=== PATIENT | male | born 1945 | race Caucasian/White ===

== ENCOUNTER 2021-11-14 10:30 | Emergency (ER) | payer MEDICARE, SELFPAY ==
[2021-11-14] VITALS (15 sets, daily range): BP systolic 171–191; BP diastolic 81–105; PULSE 52–64; RESP 8–19; TEMP 36.4; O2SAT 97–99
--- NOTE | ~2021-11-14 | XR_ITS ---
EXAMINATION: XR chest 2V 11/14/2021 11:15 INDICATION: Weakness and dyspnea PROCEDURE: 2 view chest COMPARISON: No prior studies for comparison. FINDINGS: The lungs are clear. The cardiomediastinal silhouette is within normal limits. There are no pleural effusions. There is no pneumothorax suspected. IMPRESSION: 1: NO ACUTE CARDIOPULMONARY DISEASE. Reviewed, dictated and finalized at location A.
--- NOTE | 2021-11-14 10:34 | ECG_ITS ---
Measurements Intervals [place] Rate: 57 P: 73 CA: 190 QRS: 30 QRSD: 102 T: 74 QT: 407 QTc: 397 Interpretive Statements SINUS BRADYCARDIA NONSPECIFIC T-WAVE ABNORMALITY NO PREVIOUS ECG AVAILABLE FOR COMPARISON Electronically Signed On 11-14-2021 15:44:04 CDT by Leighton Simons M.D.
[2021-11-14 10:53] LABS: Basophils Percent Auto 0.8 % (0.2-1.2); Eosinophils Absolute Auto 0.2 K/mm3 (0-0.3); Eosinophils Percent Auto 3.4 % (0-4.4); Hematocrit 38.9 % (42.0-52.0); Hemoglobin 13.3 g/dL (14.0-18.0); Immature Granulocyte Absolute 0.01 K/mm3 (0.00-0.031); Immature Granulocyte Percent A 0.2 % (0-0.5); Lymphocytes Percent Auto 36.1 % (18.3-44.2); Mean Corpuscular HGB Conc 34.2 g/dl (32-36); Mean Corpuscular Hemoglobin 36.3 pg (26-34); Mean Corpuscular Volume 106.3 fl (80-100); Mean Platelet Volume 10.8 fl (7.4-10.4); Monocytes Absolute Auto 0.6 K/mm3 (0.1-0.6); Neutrophils Absolute Auto 2.6 K/mm3 (1.3-6.7); Neutrophils Percent Auto 48.5 % (45.5-73.1); Platelet Count Result 185 k/mm3 (150-375); Red Blood Count 3.66 M/mm3 (4.6-6.20); White Blood Count 5.3 K/mm3 (4.5-10.0)
[2021-11-14 11:03] LABS: Alanine Aminotransferase 32 U/L (4-50); Albumin Level 4.2 g/dL (3.5-5.1); Alkaline Phosphatase 58 U/L (38-126); Anion Gap 6 mmol/L (8-16); Aspartate Amino Transferase 26 U/L (17-59); Bilirubin,Total 0.4 mg/dL (0.2-1.3); Blood Urea Nitrogen 20 mg/dL (9-20); Calcium 8.8 mg/dL (8.4-10.2); Carbon Dioxide 24 mmol/L (22-30); Chloride 106 mmol/L (98-107); Estimated Glomerular Filt Rate > 60; Glucose 142 mg/dL (65-110); Potassium 4.3 mmol/L (3.4-5.0); Sodium 136 mmol/L (137-145)
[2021-11-14 11:15] LABS: Troponin I < 0.012 ng/mL (0.000-0.034)
[2021-11-14 11:20] LABS: Add Urine Microscopic? YES; Appearance Urine Clear (Clear); Bilirubin Urine Negative (Negative); Blood Urine Negative (Negative); Color Urine Yellow (Yellow); Glucose Urine UA Negative (Negative); Ketones Urine Negative (Negative); Leukocyte Esterase Ur Negative LEU/UL (Negative); Nitrate Urine Negative (Negative); Protein Urine 2+ mg/dL (Negative); RBC Urine 0-2 /hpf (0-2); Specific Grav Ur 1.014 (1.001-1.035); Urobilinogen Urine Negative mg/dL (<2.0); WBC Urine 0-3 /hpf
--- NOTE | 2021-11-14 12:30 | ED.GENADULT ---
HPI - General Adult General Chief complaint: Weakness Stated complaint: weakness Time Seen by Provider: 11/14/21 12:24 Source: patient and RN notes reviewed Mode of arrival: ambulatory Limitations: no limitations History of Present Illness HPI narrative: Patient 76 years old white male presented to the ED with shortness of breath on exertion for over 2 years, did not tell anybody about it. Also increased heart rate according to his watch, currently monitor showing sinus bradycardia at 55 bpm and patient is asymptomatic. Patient tells me that he been walking 2 miles every day without any symptoms. Patient denies any fever, chills, nausea, vomiting, headache, chest pain, shortness of breath Related Data Allergies Allergy/AdvReac Type Severity Reaction Status Date / Time No Known Allergies Allergy Verified 04/24/18 08:51 Review of Systems Review of Systems: CONSTITUTIONAL: Denies fever, chills, or sweats. EYES: Denies visual changes, redness, or discharge. ENT: Denies rhinorrhea, congestion, sore throat, or otalgia. CARDIOVASCULAR: Denies chest pain, palpitations, or edema. RESPIRATORY: Denies cough or dyspnea. GASTROINTESTINAL: Denies abdominal pain, nausea, vomiting, or diarrhea. GENITOURINARY: Denies dysuria or hematuria. SKIN: Denies rash or itching. MUSCULOSKELETAL: Denies back pain, joint pain, or myalgia. NEUROLOGIC: Denies headache, numbness, or weakness. PSYCHIATRIC: Denies anxiety or depression. Exam Narrative: General appearance: Well-developed, well-nourished Skin: Normal color Head: Normocephalic, nontraumatic Eyes: Clear conjunctiva ENT: Oropharynx normal, ears normal, nose normal Neck: Supple, nontender Chest and respiratory: Airway patent, no respiratory distress, no accessory muscle use Heart: Sinus bradycardia Abdomen: Soft, nontender, no organomegaly, quiet bowel sounds Vascular: Normal peripheral pulses, normal capillary refill. Musculoskeletal: Normal range of motion, nontender back Neurologic: Alert and oriented ?3, [employer] is normal as tested, no gross motor deficit Course Course Emergency Course: Patient believes that his watch telling him that his heart rate was in the 200 overnight, currently his heart rate 55 and asymptomatic. After lengthy explanation, my plan to discharge patient on Holter monitor follow-up with Dr. Martinez as outpatient. Also to contact his family physician for further evaluation. Patient is asymptomatic on arrival to the emergency room until the time of discharge. Vital Signs Vital signs: Vital Signs Temperature 36.4 C L 11/14/21 10:58 Pulse Rate 59 L 11/14/21 10:58 Respiratory Rate 18 11/14/21 10:58 Blood Pressure 171/81 H 11/14/21 10:58 Pulse Oximetry 99 11/14/21 10:58 Temperature 36.4 C L 11/14/21 10:58 Pulse Rate 55 L 11/14/21 13:15 Respiratory Rate 11 L 11/14/21 13:15 Blood Pressure 190/98 H 11/14/21 13:02 Pulse Oximetry 99 11/14/21 13:15 Medical Decision Making Differential Diagnosis Differential Diagnosis: Cardiac arrhythmia, electrolyte imbalance, coronary artery disease, anxiety-like symptoms Vital Signs Vital Signs: Vital Signs Temperature 36.4 C L 11/14/21 10:58 Pulse Rate 59 L 11/14/21 10:58 Respiratory Rate 18 11/14/21 10:58 Blood Pressure 171/81 H 11/14/21 10:58 Pulse Oximetry 99 11/14/21 10:58 Temperature 36.4 C L 11/14/21 10:58 Pulse Rate 55 L 11/14/21 13:15 Respiratory Rate 11 L 11/14/21 13:15 Blood Pressure 190/98 H 11/14/21 13:02 Pulse Oximetry 99 11/14/21 13:15 Lab Data Result diagrams: 11/14/21 10:46 11/14/21 10:46 Labs: Lab Results 11/14/21 11/14/21 11/14/21 Range/Units
--- NOTE | 2021-11-14 12:41 | PC.NURSE ---
EDP at bedside.
--- NOTE | 2021-11-14 13:07 | PC.NURSE ---
Pt ambulatory to restroom with steady gait. Spoke with EDP about pt poc, per edp holguin, 3hr and 6hr trop need canceled and he will place the order for holter monitor.
--- NOTE | 2021-11-14 13:09 | PC.NURSE ---
Stress lab contacted about holter monitor, reports they will come to ed to place on pt.
--- NOTE | 2021-11-14 13:18 | PC.NURSE ---
Stress lab at bedside placing holter.
--- NOTE | 2021-11-17 15:28 | WPDHOLTEREM ---
Holter/Event Monitor Holter/Event Monitor Date of procedure: 11/14/21 Holter/Event Procedure: 48 Hr Holter Monitor Diagnosis: Palpitations Indications: Palpitations Image/Tracing Quality: Good Finding: Test date 11/15/2021 Analysis date and dictation date 11/17/2021 Findings: Underlying normal sinus rhythm/sinus bradycardia with heart rate variability between 46 and 98 beats per minute with an average heart rate of 58 beats per minute. Monitoring was continued for 47 hours and 59 minutes Low frequency ventricular ectopy totaling 50 beats. Thirty-two of which were isolated PVCs in the other 18 beats were in a pattern of ventricular bigeminy. Low frequency supraventricular ectopy totaling 97 beats. This consisted of 91 premature atrial contractions and 3 atrial couplets. No sustained or nonsustained runs of ventricular or supraventricular arrhythmia. Longest RR interval was 1.7 seconds. No complex heart block and no symptoms were recorded. Conclusion: 1. Underlying normal sinus rhythm/sinus bradycardia with average heart rate of 58 beats per minute. 2. Low-frequency ventricular and supraventricular ectopy as detailed above without sustained or nonsustained runs 3. No symptoms recorded
== END 2021-11-14 13:36 | disposition home or self-care (01) ==
PROVIDERS: Emergency Medicine; Emergency Provider Emergency Medicine; PCP Internal Medicine
DX: R00.0 Tachycardia, unspecified (principal); R06.00 Dyspnea, unspecified; R00.1 Bradycardia, unspecified; R94.31 Abnormal electrocardiogram [ECG] [EKG]
CPT/HCPCS: 36415; 71046; 80053; 81001; 84484; 85025; 93005; 93225; 93226; 99284

== ENCOUNTER → 2023-01-12 11:34 | Outpatient (CLI) | payer OTHER, SELFPAY ==
--- NOTE | ~2023-01-12 | XR_ITS ---
XR lumbar spine 2-3V 01/12/2023 11:56 Indication: Low back pain Procedure: 3 views lumbar spine Comparison: No prior studies for comparison. Findings: There is a superior endplate compression fracture of L3, likely chronic. There is disc narr owing at all lumbar levels. There is mild superior endplate compression deformity of L4, likely chron ic. Osteopenia. There is facet hypertrophy at L3-4 through L5-S1. Impression: 1: Superior endplate compression fractures of L3 and L4, likely chronic. 2: Moderate-severe lumbar spondylosis. Reviewed, dictated and finalized at location B. Impression: 1: Superior endplate compression fractures of L3 and L4, likely chronic. 2: Moderate-severe lumbar spondylosis.
== END ==
PROVIDERS: PCP Chiropractor Rehabilitation; Visit Provider Chiropractor Rehabilitation
DX: M47.896 Other spondylosis, lumbar region (principal); S32.030A Wedge compression fracture of third lumbar vertebra, initial encounter for closed fracture; S32.040A Wedge compression fracture of fourth lumbar vertebra, initial encounter for closed fracture; X58.XXXA Exposure to other specified factors, initial encounter
CPT/HCPCS: 72100

== ENCOUNTER 2023-01-18 12:28 | Emergency (ER) | payer MEDICARE, SELFPAY ==
--- NOTE | ~2023-01-18 | CT_ITS ---
EXAMINATION: CT lumbar spine wo con DATE: 01/18/2023 13:26 INDICATION: Low back pain TECHNIQUE: Computed tomography (CT) of the lumbar spine was performed without intravenous contrast. Radu holland dose-length product was 1312.17 mGy-cm. Automated exposure control and iterative reconstruction te hali were employed. COMPARISON: Lumbar spine series dated 01/12/2023 FINDINGS: There is a superior endplate compression fracture of L1, age indeterminate There is a wedge compression fracture of L3 which is likely acute or subacute there is demineralization of most lumba r vertebra. There is a wedge compression deformity of L5, age indeterminate. There are prominent vent ral osteophytes at the L4-5 level with disc calcification. There is subtle paravertebral stranding lynn rrounding the L3 vertebra. There is atherosclerosis of the aorta without aneurysm. There is mild wedg e compression deformity of L4, age indeterminate. There is degenerative disc disease at L1-2. IMPRESSION: 1. Compression fractures of L1, L3, L4 and L5. The L3 fracture appears acute or subacute. The remaind er of the fractures are age indeterminate. Reviewed, dictated and finalized at location L. IMPRESSION: 1. Compression fractures of L1, L3, L4 and L5. The L3 fracture appears acute or subacute. The remainder of the fractures are age indeterminate.
[2023-01-18 12:30] VITALS: BP 155/77; PULSE 55; RESP 16; TEMP 36.7; O2SAT 97
--- NOTE | 2023-01-18 12:41 | PC.NURSE ---
Pt is wheeled into ER c/o lower back pain from a fall that happened 01/09 off a step stool onto the ground. Pt states he was walking up the step stool and lost his balance and fell flat onto his back. Pt states the pain has been increasing since then. Pt has seen his PCP who prescribed him hydrocodone and tylenol with no relief from the pain. Pt has also tried ibuprofen and at home tylenol with no relief. Pt has seen his chiropractor and tried a tincture of marijuana with no relief. Pt states the pain starts in his lower back and radiates down to his legs. PMS is present in lower extremities. Pt states that he has bouts of nausea. States he has not had as many BMs since the injury.
--- NOTE | 2023-01-18 12:47 | PC.NURSE ---
States he has taken two laxatives once today and once yesterday with no BM.
--- NOTE | 2023-01-18 12:49 | PC.NURSE ---
States he had X-rays on Sunday which showed no fractures.
[2023-01-18 13:17] LABS: Basophils Percent Auto 0.8 % (0.2-1.2); Eosinophils Absolute Auto 0.1 K/mm3 (0-0.3); Eosinophils Percent Auto 2.7 % (0-4.4); Hematocrit 35.1 % (42.0-52.0); Hemoglobin 12.3 g/dL (14.0-18.0); Immature Granulocyte Absolute 0.01 K/mm3 (0.00-0.031); Immature Granulocyte Percent A 0.2 % (0-0.5); Lymphocytes Absolute Auto 1.41 K/mm3 (0.9-3.2); Lymphocytes Percent Auto 27.2 % (18.3-44.2); Mean Corpuscular Hemoglobin 37.6 pg (26-34); Mean Corpuscular Volume 107.3 fl (80-100); Mean Platelet Volume 10.5 fl (7.4-10.4); Monocytes Absolute Auto 0.7 K/mm3 (0.1-0.6); Monocytes Percent Auto 13.3 % (2.6-8.5); Neutrophils Absolute Auto 2.9 K/mm3 (1.3-6.7); Neutrophils Percent Auto 55.8 % (45.5-73.1); Platelet Count Result 214 k/mm3 (150-375); Red Blood Count 3.27 M/mm3 (4.6-6.20); Red Cell Distribution Width 12.1 % (11.5-14.5); White Blood Count 5.2 K/mm3 (4.5-10.0)
[2023-01-18 13:22] LABS: Appearance Urine Clear (Clear); Bacteria Urine None Seen /hpf; Bilirubin Urine 1+ (Negative); Blood Urine Negative (Negative); Color Urine Dark Yellow (Yellow); Glucose Urine UA Negative (Negative); Ketones Urine Negative (Negative); Leukocyte Esterase Ur Trace LEU/UL (Negative); Nitrate Urine Negative (Negative); Non Pathogenic Casts 0-2; Protein Urine 1+ mg/dL (Negative); RBC Urine 0-2 /hpf (0-2); Specific Grav Ur 1.015 (1.001-1.035); Squamous Epithelial Cell Urine None seen /hpf (Few); WBC Urine 0-5 /hpf; pH Urine 5.5 (5.0-9.0)
[2023-01-18 13:28] LABS: Macrocytosis 1+ (NORMAL); Platelet Estimate Adequate (Adequate); Schistocytes None Seen (NORMAL)
[2023-01-18 13:29] LABS: Add Urine Microscopic? YES
[2023-01-18 13:31] LABS: Alanine Aminotransferase 39 U/L (6-50); Albumin Level 3.9 g/dL (3.5-5.1); Alkaline Phosphatase 68 U/L (38-126); Anion Gap 7 mmol/L (8-16); Aspartate Amino Transferase 38 U/L (17-59); Bilirubin,Total 0.6 mg/dL (0.2-1.3); Blood Urea Nitrogen 21 mg/dL (9-20); CRP 1.2 mg/dL (<1.0); Carbon Dioxide 27 mmol/L (22-30); Chloride 102 mmol/L (98-107); Estimated CRCL calculation 56 ml/min; Estimated Glomerular Filt Rate > 60; Glucose 119 mg/dL (65-110); Potassium 4.3 mmol/L (3.4-5.0); Sodium 136 mmol/L (137-145)
--- NOTE | 2023-01-18 14:21 | ED.BACK ---
HPI - Back Pain/Injury General Chief Complaint: Back Pain/Injury Stated Complaint: fall 01/09; back pain Time Seen by Provider: 01/18/23 12:36 Source: patient Mode of arrival: ambulatory Limitations: no limitations History of Present Illness HPI Narrative: 77-year-old here with complaints of low back pain for past 1 week. Patient states that he has seen his primary doctor and was given hydrocodone he states that the pain is not getting any better he has no relief with hydrocodone 10/325 .Patient states that it is hard for him to get out of the bed takes several minutes for him to get up and lay back. Denies any trauma. No bladder or bowel incontinence. Patient states he might be constipated from hydrocodone and has taken 2 stool softeners this morning. MD elicited complaint: back pain Pertinent past history: prior back pain Onset (ago): week(s) (1) Timing: constant Severity: moderate Quality: aching Location: lumbar spine Radiation: none Exacerbating factors: none Relieving factors: none Associated symptoms: denies other symptoms Related Data Home Medications Medication Instructions Recorded Confirmed metformin 1,000 mg tablet 1,500 mg PO BID 01/18/23 01/18/23 Allergies Allergy/AdvReac Type Severity Reaction Status Date / Time No Known Allergies Allergy Verified 01/18/23 12:40 Review of Systems Review of Systems: All systems reviewed & are unremarkable except as noted in HPI and below Constitutional: Constitutional: Reports no additional constitutional complaints Eyes: Eyes: Reports no additional eye complaints ENT: Reports system reviewed and no additional complaints, except as documented Cardiovascular: Cardiovascular: Reports no additional cardiovascular complaints Respiratory: Respiratory: Reports no additional respiratory complaints Gastrointestinal: Gastrointestinal: Reports no additional gastrointestinal complaints Genitourinary: Genitourinary: Reports no additional male genitourinary complaints Musculoskeletal: Musculoskeletal: Reports as per HPI Neurologic: Reports system reviewed and no additional complaints, except as documented Exam Narrative: GENERAL: Well-appearing, well-nourished, and in no acute distress. HEAD: Normocephalic, atraumatic. EYES: PERRLA and EOMI NECK: Supple. CHEST: Clear to auscultation. No respiratory distress. HEART: Regular rate and rhythm. No murmur heard. Normal peripheral pulses. ABDOMEN: Soft, nontender, nondistended, normal active bowel sounds. EXTREMITIES: Normal range of motion. No edema. SKIN: Warm, dry, no rash. NEURO: No focal deficits. Alert and oriented x3. PSYCH: Normal mood and affect. Course Course Emergency Course: Notified patient about his lab work, CT findings. Patient states that he has a back brace but he seldom uses it. Advised him to use the brace all the time continue home pain medication. Recommended him to follow-up with his primary doctor as well as pain management. He did not like the idea of vertebroplasty Vital Signs Vital signs: Vital Signs Temperature 36.7 C 01/18/23 12:30 Pulse Rate 55 L 01/18/23 12:30 Respiratory Rate 16 01/18/23 12:30 Blood Pressure 155/77 H 01/18/23 12:30 Pulse Oximetry 97 01/18/23 12:30 Oxygen Delivery Room Air 01/18/23 12:30 Temperature 36.7 C 01/18/23 12:30 Pulse Rate 55 L 01/18/23 12:30 Respiratory Rate 16 01/18/23 12:30 Blood Pressure 155/77 H 01/18/23 12:30 Pulse Oximetry 97 01/18/23 12:30 Oxygen Delivery Room Air 01/18/23 12:30 MDM - Back Pain/Injury MDM Narrative Medical decision making narrative: 77-year-old here with complaints of ongoing low back pain. No trauma. States he is not getting any comfort with pain medication will do a CT of the lumbar spine along with lab work. Lab Data 01/18/23 13:08 01/18/23 13:08 Labs: Lab Results 01/18/23 01/18/23 Range/Units 13:08 13:11 WBC 5.2 (4.5-10
[2023-01-18 14:53] VITALS: BP 167/89; PULSE 49; RESP 13; O2SAT 98
== END 2023-01-18 14:55 | disposition home or self-care (01) ==
PROVIDERS: Emergency Provider Family Medicine; PCP Chiropractor Rehabilitation
DX: M48.56XA Collapsed vertebra, not elsewhere classified, lumbar region, initial encounter for fracture (principal); Z79.84 Long term (current) use of oral hypoglycemic drugs
CPT/HCPCS: 36415; 72131; 80053; 81001; 85025; 86140; 99284